=== PATIENT | male | born 1980 | race Caucasian/White ===

== ENCOUNTER 2021-05-22 14:42 | Emergency (ER) | payer SELFPAY ==
[2021-05-22 14:49] VITALS: BP 143/85; PULSE 85; RESP 18; TEMP 36.9; O2SAT 95; BMI 38.2
--- NOTE | 2021-05-22 16:32 | ED_ITS ---
Documented by User: LUPE Turner 05/22/21 16:46 HPI - Alcohol General: Chief Complaint: Alcohol Stated Complaint: SI,drinking Time Seen by Provider: 05/22/21 16:31 Source: patient Mode of arrival: ambulatory Limitations: no limitations History of Present Illness: Patient is a 41-year-old male who presents to ED today at the request of [facility] for evaluation for a possible medical detox. Patient is a longstanding chronic alcoholic consuming 20+ beers daily. He states he has not had a drink since midnight yesterday evening. He currently has zero symptoms. Patient states he has never had detox symptoms previously. [facility] states they were concerned about the possibility of developing symptoms while at their facility so wanted him to be evaluated medically. MD complaint: medical clearance for detox facility Last drink: Hours (ago) Chronic alcohol use: Yes Recent trauma: No Associated symptoms: Reports no associated symptoms; Deny abdominal pain, hematemesis, melena, nausea, seizure-like activity or vomiting Treatments prior to arrival: none Review of Systems Const: Denies: fever(s), chills, body aches, fatigue or malaise Eyes: Denies: change in vision Card: Denies: chest pain Resp: Denies: dyspnea GI: Denies: abdominal pain, nausea, vomiting, hematemesis, diarrhea, hematochezia or melena Musc: Denies: neck pain, back pain, extremity pain or joint pain Skin/Breast: Denies: rash Neuro: Denies: headache(s), numbness in extremities, weakness in extremities, sensory changes, lack of coordination, difficulty walking, dizziness, confusion, behavioral changes, Slurred speech present, difficulty communicating thoughts or seizure-like activity [facility] ED PFSH: Medical History Chronic alcohol abuse Hypertension Physical Exam Const: COMMON NORMALS: no acute distress, patient oriented x3, no limitations, alert and well nourished GENERAL APPEARANCE: cooperative NUTRITIONAL APPEARANCE: obese ORIENTATION/CONSCIOUSNESS: Yes awake, Yes oriented to pe rson, Yes oriented to place and Yes oriented to time HENMT: COMMON NORMALS: normocephalic and atraumatic HEAD & SCALP: normocephalic and atraumatic Resp: COMMON NORMALS: normal respiratory effort and clear to auscultation bilaterally AUSCULTATION: clear to auscultation bilaterally Cardio: COMMON NORMALS: regular rate and regular rhythm RATE: regular rate RHYTHM: regular rhythm GI: COMMON NORMALS: Normal to inspection, nondistended, normoactive bowel sounds present, Soft to palpation and non-tender PALPATION: Yes Soft to palpation Extremity: COMMON NORMALS: normal to inspection GENERAL: Yes normal exam except as noted Neuro: SHALOM COMA SCALE: document GCS findings [place] coma scale eye opening: Spontaneous [place] coma scale verbal response: Orientated [place] coma scale motor response: Obey commands [place] coma scale total score: 15 COMMON NORMALS: patient oriented x3, CN's II-XII intact bilaterally, moves all extremities, no focal motor deficits and no sensory deficits noted SENSORIUM/ORIENTATION: Yes alert, Yes oriented to person, Yes oriented to place and Yes oriented to time SPEECH: speech normal GAIT: Yes Normal gait present Skin: COMMON NORMALS: no rashes or lesions noted GENERAL SKIN EXAM: no rashes or lesions noted Course Vital Signs: Vital signs: Vital Signs Temperature 98.4 F 05/22/21 14:49 Pulse Rate 85 05/22/21 14:49 Respiratory Rate 18 05/22/21 14:49 Blood Pressure 143/85 05/22/21 14:49 Pulse Oximetry 95 05/22/21 14:49 MDM - Alcohol Medical Decision Making Patient has absolutely no symptoms currently. His CIWA score is 0. He has chronic treated hypertension. Blood pressure today is 140s/80s. At this point patient does not qualify for a medical admission. He denies SI/HI and there would be no reason to admit him to NPU. I spoke to Ion at [facility] who agreed with current plan for patient to return to their facility. I spoke to Dr. Rivero who recommended placing patient on Librium. Strict return to ED precautions were given to patient as well as Ion if patient does become symptomatic during their care. Discharge Plan Discharge Patient Disposition: Home Clinical Impression: Chronic alcohol abuse Condition: Stable Prescriptions: New chlordiazepoxide HCl 25 mg capsule 50 mg PO Q6H PRN (Reason: alcohol withdrawal) Qty: 30 0RF Rx Instructions: Take 2 tabs every 6 hours prn for the first 48-72 hours and then can take 2 tabs every 8 hours prn following that Discharge Orders: Discharge ED (Routine); Ordered 05/22/21 Ordered By: Chelly Interiano Referrals: Yumiko Cid, [facility] [Primary Care Provider] - Patient Instructions: Alcohol Withdrawal (ED), Alcohol Dependence (ED) Coding Level of Care Code ED Outsole Tacker for Chg Fwd Exam Comprehensive Documented by User: Denis Rivero DO 05/22/21 17:13 HPI - Alcohol General: Chief Complaint: Alcohol Stated Complaint: SI,drinking Time Seen by Provider: 05/22/21 16:31 [facility] ED PFSH: Medical History Chronic alcohol abuse Hypertension Physical Exam Neuro: SHALOM COMA SCALE: document GCS findings [place] coma scale total score: 15 Course Vital Signs: Vital signs: Vital Signs Temperature 98.4 F 05/22/21 14:49 Pulse Rate 85 05/22/21 14:49 Respiratory Rate 18 05/22/21 14:49 Blood Pressure 143/85 05/22/21 14:49 Pulse Oximetry 95 05/22/21 14:49 MDM - Alcohol Medical Decision Making Patient has absolutely no symptoms currently. His CIWA score is 0. He has chronic treated hypertension. Blood pressure today is 140s/80s. At this point patient does not qualify for a medical admission. He denies SI/HI and there would be no reason to admit him to NPU. I spoke to Ion at [facility] who agreed with current plan for patient to return to their facility. I spoke to Dr. Rivero who recommended placing patient on Librium. Strict return to ED precautions were given to patient as well as Ion if patient does become symptomatic during their care. Chart reviewed and patient discussed with midlevel. Agree with assessment and plan. Discharge Plan Discharge Patient Disposition: Home Clinical Impression: Chronic alcohol abuse Condition: Stable Prescriptions: New chlordiazepoxide HCl 25 mg capsule 50 mg PO Q6H PRN (Reason: alcohol withdrawal) Qty: 30 0RF Rx Instructions: Take 2 tabs every 6 hours prn for the first 48-72 hours and then can take 2 tabs every 8 hours prn following that Discharge Orders: Discharge ED (Routine); Ordered 05/22/21 Ordered By: Chelly Interiano Referrals: Yumiko Cid FNP [Primary Care Provider] - Patient Instructions: Alcohol Withdrawal (ED), Alcohol Dependence (ED) Coding Level of Care Code ED Outsole Tacker for Chg Fwd Exam Comprehensive
== END 2021-05-22 16:51 | disposition home or self-care (01) ==
PROVIDERS: Emergency Provider Physician Assistant; PCP Nurse Practitioner Family
DX: F10.10 Alcohol abuse, uncomplicated (principal); I10 Essential (primary) hypertension
CPT/HCPCS: 99281